=== PATIENT | male | born 1975 | race Caucasian/White ===

== ENCOUNTER 2024-04-28 16:53 | Emergency (ER) | payer OTHER, SELFPAY ==
[2024-04-28 16:54] VITALS: BP 125/91; PULSE 81; RESP 16; TEMP 36.4; O2SAT 99; BMI 36.6
--- NOTE | 2024-04-28 18:35 | US_ITS ---
STUDY: VENOUS DOPPLER ULTRASOUND - LEFT LOWER EXTREMITY REASON FOR EXAM: Male, 49 years old. LT LATERAL CALF PAIN AND LUMP TECHNIQUE: Ultrasound evaluation of the deep vein system to include doyle-scale imaging and compression was performed. Doyle-scale imaging and Doppler sonographic evaluation, including duplex spectral analysis and qualitative color flow sonography, was performed. COMPARISON: None. FINDINGS: Common Femoral Vein: Normal compression, spontaneity and augmentation. Normal color Doppler. Common Femoral Vein/Greater Saphenous Junction: Normal compression, spontaneity and augmentation. Normal color Doppler. Deep Femoral Vein: Normal compression, spontaneity and augmentation. Normal color Doppler. Femoral Proximal: Normal compression, spontaneity and augmentation. Normal color Doppler. Femoral Middle: Normal compression, spontaneity and augmentation. Normal color Doppler. Femoral Distal: Normal compression, spontaneity and augmentation. Normal color Doppler. Popliteal Vein: Normal compression, spontaneity and augmentation. Normal color Doppler. Posterior Tibial Vein: Normal compression, spontaneity and augmentation. Normal color Doppler. Peroneal Vein: Normal compression, spontaneity and augmentation. Normal color Doppler. There is a hypoechoic mass in left lateral calf measuring 4.4 x 4.3 cm at the site of pain of uncertain etiology possibly representing resorbing hematoma. Clinical correlation recommended. MRI or biopsy would be useful for further evaluation if indicated US/Venous Duplex Imag/Limited/Uni IMPRESSION: No evidence of deep venous thrombosis. Mass in the lateral calf possibly resorbing hematoma. Clinical correlation recommended Electronically Signed: Jordan Stoner MD at 19:32 EDT ,
[2024-04-28 20:53] VITALS: BP 125/71; PULSE 76; RESP 18; O2SAT 100
--- NOTE | 2024-04-28 23:33 | EDS_ITS ---
HPI History of Present Illness Chief Complaint: Lower Extremity Injury Informant: patient Narrative Narrative: Patient is a 49-year-old male with past medical history of hypertension currently on amlodipine as well as lisinopril/hydrochlorothiazide. He states he has been outside working around the house but denies any trauma to his left leg. He states over the past few days he has noticed that his left leg has become more swollen and tender than the right. He denies any recent travel surgery or history of DVT/PE but states he was looking up potential causes of his symptoms and had concern for a blood clot. Secondary to this he presents for evaluation [facility] Medical History unable to obtain Allergy/AdvReac Type Severity Reaction Status Date / Time No Known Allergies Allergy Verified 04/28/24 16:54 Social History Smoking Status: Unknown if ever smoked ROS ROS ED Constitutional Constitutional ED: Denies chills or fever(s) Eyes Eyes: Denies change in vision ENT ENT ED: Denies sore throat Cardiovascular Cardiovascular: Denies chest pain, palpitations or racing heartbeat Respiratory/Chest Respiratory/Chest: Denies cough or dyspnea Gastrointestinal Gastrointestinal: Denies abdominal pain, diarrhea, nausea or vomiting Genitourinary Genitourinary ED: Denies dysuria Musculoskeletal Musculoskeletal: Reports other Details: Positive left leg pain and swelling Integumentary Reports other Details: Positive redness left leg Neurologic Neurologic: Denies headache(s) Hematologic/Lymphatic Hematologic/Lymphatic: Denies easy bleeding or easy bruising Allergic/Immunologic Allergic/Immunologic ED: Denies mouth swelling or tongue swelling EXAM Physical Exam Const Vital Signs: 04/28/24 16:54 04/28/24 20:53 04/28/24 23:41 Temperature 97.5 F L 98 F Temperature Source Temporal Pulse Rate 81 76 80 Respiratory Rate 16 18 16 Blood Pressure 125/91 H 125/71 H 149/79 H Blood Pressure Mean 102 89 102 Pulse Ox 99 100 96 Oxygen Delivery Method Room Air Room Air Positive well nourished, well developed and obese General Appearance ED: well developed Nutritional Appearance: obese HEENT HEENT Narrative: Normocephalic atraumatic Eyes PERRL and EOMs intact bilaterally General Eye ED: Negative for scleral icterus Neck supple and no JVD Resp normal respiratory effort and clear to auscultation bilaterally Resp Narrative: No nasal flaring retractions tachypnea accessory muscle use stridor or crackles noted Cardio regular rate and regular rhythm Rate: other Other Details: Heart is regular rate and rhythm without murmurs rubs or gallops Radial and carotid pulses are equal and symmetric Extremity Extremity Narrative: Bilateral lower extremities are neurovascularly intact. The left lower extremity is roughly 2-3 times larger than the right. There is faint asymmetric erythema and warmth mainly along the anterior lateral aspect of the middle to distal third of the vinson. No lymphangitic streaking noted. Negative Homans' sign bilaterally Neuro oriented x3, CN's II-XII intact bilaterally and no sensory deficits noted Sensorium / Orientation: alert Motor Exam: strength 5/5 throughout Psych mental status grossly normal Skin Skin Narrative: Soft tissue changes to the left leg compared to right as documented above MDM MDM MDM Narrative Medical decision making narrative: Patient arrived to the ER with stable vitals and reported leg swelling without any obvious known trauma. Demential diagnosis is for cellulitis versus abscess versus hematoma versus DVT. An ultrasound was obtained which revealed no DVT but did show a circular lesion within the calf concerning for potential hematoma. Secondary to this I did place the ultrasound on the patient's leg and there is a black circular fluid collection noted. The area was cannulated with a needle as documented below and nonpulsatile dark red blood was returned indicating patient has a hematoma. Therefore as this correlates with the ultrasound and patient does not have cellulitis or abscess or DVT there is no need for further workup and he is otherwise safe for discharge Patient had his left calf cleaned with chlorhexidine. 4 mL of 2% lidocaine with epinephrine were injected into the skin and fluid collection under ultrasound. A 18-gauge needle was then used to cannulate the fluid collection and there was return of dark red nonpulsatile blood. Following extraction of 8 cc of blood manual pressure was applied to further evacuate the hematoma. Following this the wound was covered in nonstick gauze pad and wrapped with an Donaldo wrap. Patient tolerated procedure well without complication History & Record Review Discussion w/independent historian: Patient Radiography Diagnostic Testing: Clinical Impression(s) from Imaging Studies Venous Duplex 04/28/24 18:35 IMPRESSION: No evidence of deep venous thrombosis. Mass in the lateral calf possibly resorbing hematoma. Clinical correlation recommended Electronically Signed: Jordan Stoner MD at 19:32 EDT , Discharge Plan Triage Chief Complaint: Lower Extremity Injury ED Provider: Clive Larios Dx/Rx/DC Orders Clinical Impression: Hematoma of left lower leg, Hypertension Instructions: ED Hematoma Primary Care Provider: Care Physician,No Primary Activity Restrictions/Additional Instructions: Your ultrasound did not display DVT but instead a small hematoma. Use warm compresses to help dissolve the hematoma and wear the Donaldo wrap for compression and to prevent reexpansion. The hematoma should resolve on its own over the next 1 to 2 weeks. Return to the ER should you have any further concerns Print Language: Yoruba Disposition Disposition: Home, Self Care Discharge Date/Time: 04/29/24 00:03
[2024-04-28 23:41] VITALS: BP 149/79; PULSE 80; RESP 16; TEMP 36.6; O2SAT 96
[2024-04-28] MEDS: Lidocaine 2% /Epi 1:100 (20ml) 20 ML VIAL INFILT (23:43)
== END 2024-04-29 00:03 | disposition home or self-care (01) ==
PROVIDERS: Emergency Provider Emergency Medicine; Visit Provider Emergency Medicine
DX: S80.12XA Contusion of left lower leg, initial encounter (principal); I10 Essential (primary) hypertension; Z79.899 Other long term (current) drug therapy; E66.9 Obesity, unspecified; X58.XXXA Exposure to other specified factors, initial encounter
CPT/HCPCS: 93971; 99282